=== PATIENT | male | born 1955 | race Hispanic/Latino ===

== ENCOUNTER 2017-09-30 22:28 | Emergency (ER) | payer MEDICARE, BC ==
[2017-09-30] MEDS ORDERED: Acetaminophen/Codeine 30-300mg Tablet ONE (23:03)
[2017-09-30] MEDS ORDERED: Cyclobenzaprine 10 MG TAB ONE (23:03)
--- NOTE | 2017-09-30 23:13 | RAD ---
THREE VIEWS OF THE RIGHT SHOULDER 09/30/17 HISTORY: Pain. FINDINGS: There is moderate degenerative change of the right acromioclavicular joint. There is no widening of t he AC or CC interspace. No displaced fracture or dislocation. IMPRESSION: No acute osseous abnormality. POS: [facility]
== END 2017-09-30 23:53 | disposition home or self-care (01) ==
LOC: ERS 22:28
DX: M19.011 Primary osteoarthritis, right shoulder (principal); M54.12 Radiculopathy, cervical region; I10 Essential (primary) hypertension; E78.5 Hyperlipidemia, unspecified; E11.9 Type 2 diabetes mellitus without complications; Z87.891 Personal history of nicotine dependence

== ENCOUNTER 2018-01-10 09:53 | Inpatient (IN) | payer BC, MEDICARE, OTHER ==
[2018-01-10 10:31] LABS: #Basophils 0.1 thou/uL (0.0-0.2); #Eosinphils 0.3 thou/uL (0.0-0.7); #Lymphocytes 1.6 thou/uL (1.20-3.40); #Monocytes 0.7 thou/uL (0.11-0.59); #Neutrophils 7.8 thou/uL (1.40-6.50); %Basophils 0.6 % (0.0-1.0); %Eosinophils 3.2 % (0.0-10.0); %Lymphocytes 14.8 % (21.0-51.0); %Monocytes 6.6 % (0.0-10.0); %Neutrophils 74.8 % (42.0-75.0); Hemoglobin 15.8 g/dL (14.0-18.0); Mean Corpuscular HGB CONC 33.4 g/dL (32.0-36.0); Mean Corpuscular Hemoglobin 31.7 pg (27.0-31.0); Mean Corpuscular Volume 95.1 fl (80.0-94.0); Mean Platelet Volume 9.7 fL (7.4-10.4); Platelet Count 181 thou/uL (130-400); RBC Distribution Width 12.1 % (11.5-14.5); Red Blood Cell (RBC) Count 4.98 mill/uL (4.70-6.10); White Blood Cell (WBC) Count 10.5 thou/uL (4.8-10.8)
[2018-01-10 10:40] LABS: INR-International Normal Ratio 1.5; PTT 38.7 SEC (22.9-36.1)
[2018-01-10 10:54] LABS: ALT (SGPT) 16 U/L (8-55); AST (SGOT) 18 U/L (5-34); Albumin 3.9 g/dL (3.4-4.8); Alcohol Less than 10 mg/dL (Less than 10); Alkaline Phosphatase 101 U/L (40-150); Anion Gap 16 mmol/L (10-20); BUN (Urea Nitrogen) 44 mg/dL (8.4-25.7); Bilirubin, Total 0.9 mg/dL (0.2-1.2); CK (CPK) 303 U/L (30-200); Calc. Creatinine Clearance 0 mL/min (70-130); Calcium 9.9 mg/dL (7.8-10.44); Carbon Dioxide 25 mmol/L (23-31); Chloride 97 mmol/L (98-107); Estimated GFR-MDRD 36; Globulin 3.4 g/dL (2.4-3.5); Glucose 333 mg/dL (80-115); Potassium 3.8 mmol/L (3.5-5.1); Protein, Total 7.3 g/dL (5.8-8.1); Sodium 134 mmol/L (136-145)
--- NOTE | 2018-01-10 10:54 | RAD ---
PORTABLE AP CHEST RADIOGRAPH: Date: 01-10-18 History: Chest pain, dizziness, fall. Comparison: 09-12-11 FINDINGS: There has been interval placement of a dual-lead right subclavian AICD device with RA and RV leads. C ardiac silhouette and pulmonary vasculature are within normal limits. The lungs are clear. Calcified left hilar and mediastinal lymph nodes are present. IMPRESSION: No acute cardiopulmonary process. POS: [facility]
[2018-01-10 10:57] LABS: Troponin I Less than 0.010 ng/mL (< 0.028)
[2018-01-10 11:00] LABS: CKMB 8.2 ng/mL (0-6.6)
--- NOTE | 2018-01-10 11:41 | CT ---
HEAD CT WITHOUT CONTRAST: 01/10/2018 HISTORY: Unsteady gait with weakness and dizziness. Falls. COMPARISON: 07/18/2011 TECHNIQUE: Serial axial CT imaging is obtained at 5 mm intervals, from the vertex through the skull base, withou t contrast. FINDINGS: The imaged paranasal sinuses/mastoid air cells are well aerated. There is no displaced calvarial fra cture. There is a new hyperdense lesion within the left frontal lobe, measuring 7 mm, in the subcortical reg ion, best seen on image 18. There is mild periventricular hypodensity, suggesting small vessel disea se. No midline shift or mass effect is noted. IMPRESSION: New 7 mm hyperdense intraaxial lesion in the left frontal lobe. This could represent a new focus of intraaxial hemorrhage. A benign calcification or calcified intraaxial mass is a possibility. Short- term follow-up imaging is advised to assess if this represents a hemorrhage, which would resolve over time. If this does not resolve in an appropriate fashion, a brain MRI would then be advised for fur ther assessment. Results discussed with Dr. Garcia at 11:10 a.m. on 01/10/2018. CODE CR POS: [facility]
[2018-01-10 12:07] LABS: Bilirubin Negative (Negative); Blood, Urine Trace (Negative); Glucose, Urine (Dipstick) 500 mg/dL (Negative); Leukocyte Negative (Negative); Nitrite Negative (Negative); Protein, Urine (Dipstick) Negative (Neg-Trace); Specific Gravity, Urine 1.015 (1.005-1.030); Urobilinogen 0.2 mg/dL (0.2-1.0)
[2018-01-10 12:09] LABS: Clarity Clear (Clear)
[2018-01-10 12:14] LABS: Bacteria/HPF None Seen HPF (None Seen); Hyaline Casts/LPF 0-3 HYALINE CAST LPF (0-3 Hyaline); RBC/HPF 0-3 HPF (0-3); Squamous Epithelial 0-3 HPF (0-3); Transitional Epithelial 0-3 HPF (0-3); WBC/HPF 0-3 HPF (0-3)
[2018-01-10 14:17] LABS: Troponin I Less than 0.010 ng/mL (< 0.028)
--- NOTE | 2018-01-10 17:15 | PDOC.EVN ---
Event Note - Event Note Event Note: [id number] H&P DICATTED 1. R/O STROKE 2. HTN 3. H/O DM TYPE 2 4. H/O CVA plan: see orders
[2018-01-10 17:23] VITALS: BMI 25.9
[2018-01-10 17:34] LABS: Troponin I Less than 0.010 ng/mL (< 0.028)
--- NOTE | 2018-01-10 18:18 | HP ---
CHIEF COMPLAINT: Unsteady gait. HISTORY OF PRESENT ILLNESS: The patient is a 62-year-old male with past medical history of diabetes type 2, CVA, hypertension, atrial fibrillation, now came today complaining of unsteady gait. The pat kiarra said he is feeling dizzy and unsteady gait since the last 2 days. The patient said he gets inte rmittent dizziness, so he uses meclizine, but today his unsteady gait is more worse now as if he is g oing to fall. Denies any head injury. Complains of headache and neck pain also constant. Since yes terday, has history of intermittent headaches. Denies any nausea, denies any vomiting, denies any di arrhea, denies any blood in stool, denies any chest pain, denies any palpations. PAST MEDICAL HISTORY: As per HPI. PAST SURGICAL HISTORY: AICD. SOCIAL HISTORY: Denies smoking, denies alcohol use, denies any drugs. FAMILY HISTORY: Positive for heart problems. MEDICATIONS: Reviewed. REVIEW OF SYSTEMS: Constitutional: Denies any fever, denies any chills. Eyes: No vision problems. Ears: Denies any hearing loss. Neck: Denies any neck pain. Cardiovascular System: Denies any c hest pain, denies any palpations. Respiratory System: Denies any cough, denies any sputum productio n. Gastrointestinal: Denies nausea, vomiting. Cranial Nervous System: Denies syncope. Positive for unsteady gait. All other review of systems ar e reviewed and are negative. PHYSICAL EXAMINATION: CONSTITUTIONAL/VITAL SIGNS: At the time of H&P performed, blood pressure is 130/70, afebrile and res piration rate 18. GENERAL: The patient appears comfortable. HEENT: Anterior nares patent. Nose normal. Ears normal. Teeth intact. Tongue is moist. NECK: Supple. No JVD. CARDIOVASCULAR SYSTEM: S1 and S2 present. Regular rate and rhythm. No murmurs, no rubs, no gallops . RESPIRATORY SYSTEM: No wheezing, no rhonchi. Breath sounds present bilaterally. GASTROINTESTINAL: Abdomen is soft and nontender. No guarding, no organomegaly, no masses felt. MUSCULOSKELETAL: No edema. NEUROLOGIC: Cranial nerves intact. Follows commands. Speech clear. PSYCHIATRIC: Mood is appropriate at this time. INTEGUMENT: No rashes seen. LABORATORY DATA: At the time of H&P performed; white count of 10.5, hemoglobin 15.8 and platelet cou nt is 181. PT 18 and INR 1.5. BMP showed a sodium of 134, potassium 3.8, chloride 97, CO2 of 25, BU N 44 and creatinine 1.89. IMAGING DATA: CT head done in the ER showed benign new hyperdense intraaxial lesion seen in the left frontal lobe. This could represent new focal self intraaxial hemorrhage and recommended MRI. ASSESSMENT AND PLAN: The patient is 62 years old male. 1. Rule out stroke. CT questionable showed possible hemorrhage. We did consult Neurology in the ER . We will go ahead and get repeat CT head in the a.m. We will monitor the patient closely. We will do neuro checks q.2 hours per protocol. We will hold up as per this time. 2. Unsteady gait and leg pain. Plan to do CT cervical spine also rule out cervical stenosis. We wi ll monitor the patient closely. We will get PT, OT for a while. 3. Hypertension. Monitor blood pressure. Continue blood pressure medications. 4. History of atrial fibrillation, hold anticoagulation at this time and monitor heart rate. 5. Diabetes mellitus type 2. Start him up to monitor blood sugars. We will do insulin sliding scal e. The case was discussed in detail with the patient.
[2018-01-10] MEDS: Sodium Chloride 0.9% 1,000 ML IV SCH (18:57)
[2018-01-10] MEDS: HYDROcodone/Acetaminophen 5/325 mg Tablet PO PRN (18:57)
--- NOTE | 2018-01-10 20:03 | CON ---
DATE OF CONSULTATION: 01/10/2018 REFERRING PROVIDER: Dr. Kp Woods. REASON FOR CONSULTATION: Gait imbalance and worsening right-sided weakness. HISTORY OF PRESENT ILLNESS: Mr. Roy is a pleasant 62-year-old male who has been consulted for evaluation of difficulty with gait imbalance and worsening right-sided weakness. History is obtained from the patient and his who was present at bedside. reports that patient has a history of stroke in 2006 that resulted in right hemiparesis and aphasia. He has slowly recovered to the full extent. On occasions, he may have some weakness in his right lower extremity, but able to walk independently without any assistance of a cane or walker. He is also able to perform all his activities without any difficulty. She states that over the past few days, she started noticing that he has been dragging his right leg frequently. She also noted that he has been complaining of feeling weak in his right lower extremity. He also has been having increasing difficulty with his speech, where he has hard time finding words. He has had several falls over the past couple of days, which prompted them to bring him to the [facility]. She does note that he has been under a lot of stress over the past few days as his grandson committed suicide whom they have raised as their own son. This has put a lot of stress and depression on him. PAST MEDICAL HISTORY: Significant for hypertension, diabetes, atrial fibrillation, history of stroke and history of heart attack. PAST SURGICAL HISTORY: Significant for pacemaker placement. SOCIAL HISTORY: Denies smoking, alcohol use, or illicit drug use. FAMILY HISTORY: Noncontributory. CURRENT MEDICATIONS: Please review MAR. ALLERGIES: Include LIDOCAINE, PENICILLIN, NAPROXEN and ASPIRIN. REVIEW OF SYSTEMS: As mentioned in the HPI, is negative. PHYSICAL EXAMINATION: VITAL SIGNS: Blood pressure 151/85, pulse of 67, temperature of 98.3, respirations of 16 and O2 sats of 94% on room air. GENERAL: A well-developed, well-nourished male in no apparent distress. RESPIRATORY: Clear to auscultation bilaterally. CARDIOVASCULAR: Regular rate and rhythm. NEUROLOGIC: Mental status: The patient is awake, alert and oriented x3. Speech and language: Fluent speech. Cranial nerves: Pupils are 3 mm and reactive. Visual yuen are intact. External muscles are intact. No nystagmus is noted. Face is symmetric. Tongue and uvula are midline. Motor exam showed normal tone and bulk with a 5/5 strength in both upper and lower extremities. I did not appreciate any pronator drift in both upper extremities. There is a very subtle pronator drift on the right lower extremity. Sensory: Sensation is intact and symmetric. Deep tendon reflexes: 2+ reflexes in both upper and lower extremities. Babinski: Plantar responses flexion bilaterally. Coordination intact to [id number] tapping bilaterally. Rwdq-lw-feee test was normal bilaterally. Gait: I had seen him walk from the bathroom to his bed without any difficulty or any assistance. LABORATORY DATA: Labs are reviewed, which included CBC, CMP, troponin, CPK, CK- MB, urinalysis and plasma alcohol level, which is significant for sodium of 134 , BUN of 44, creatinine of 1.89, glucose of 333, CK-MB of 8.2, CPK of 303, otherwise unremarkable. INR level was 1.5, PT of 18.0 and PTT of 38.7. IMAGING STUDIES: CT head without contrast was reviewed, which showed no acute intracranial abnormality. There was a mention by radiologist about hyperdense lesion measuring 7 mm in the left posterior frontal lobe. In my opinion, this is likely calcification. IMPRESSION: 1. Right lower extremity weakness. 2. Hyperdense lesion in the left posterior frontal lobe. 3. Headache. PLAN: Mr. Roy is a pleasant 62-year-old male who presented with the 2 days history of increasing weakness in the right lower extremity. On my exam , his strength appears pretty symmetric on both sides. I have reviewed his CT head, which does show a small tiny hyperdense lesion in the left posterior frontal lobe, this may be a calcification. Underlying small intraaxial hematoma cannot be completely excluded. I have explained to the that this is unlikely to be the cause for his symptoms. In my opinion, his symptoms are likely contributed by recent increase in stress. He may need a repeat CT head tomorrow morning to revaluate for the lesion noted on the CT scan. If it does not grow or is resolved, then it can be managed medically. I would recommend getting an opinion from neurosurgery for this lesion. Thank you for the consultation. VAN
[2018-01-10] MEDS ORDERED: Atorvastatin Calcium 40 MG TAB PO SCH (21:00)
[2018-01-10] MEDS ORDERED: Dextrose 5% in Water 1,000 ML IV PRN (21:14)
[2018-01-10] MEDS ORDERED: Dextrose 50% Abboject 50 ML SYRINGE IVP PRN (21:14)
[2018-01-10] MEDS: Insulin Regular 300 UNITS/3 ML VIAL SC PRN (21:22)
--- NOTE | 2018-01-10 21:30 | ULT ---
ULTRASOUND WITH DOPPLER DUPLEX CAROTID: 01/10/18 HISTORY: Diagnosis of "carotid stenosis" in 62-year-old male. TECHNIQUE: Gracia scale, color flow, and spectral analysis of major arteries in neck. FINDINGS: There is focal mild plaque, mostly noncalcified, at the origins of the bilateral internal carotid art eries, right greater than left. Highest peak systolic velocities in the internal carotid arteries, ar e 100 cm/s on the right and 65 cm/s on the left. ICA/CCA ratios are 1.4 on the right and 0.8 on the l eft. Vertebral artery flow is antegrade bilaterally. IMPRESSION: 1. Mild atherosclerosis at origins of bilateral internal carotid arteries. 2. No hemodynamically significant stenosis. POS: [facility]
[2018-01-11 06:17] LABS: Cardiac Risk 6.7 (Less than 4.5)
[2018-01-11 06:22] LABS: INR-International Normal Ratio 1.3; Prothrombin Time 16.1 SEC (12.0-14.7)
[2018-01-11] MEDS: Sodium Chloride 0.9% 1,000 ML IV SCH ×2 (06:24→21:53)
[2018-01-11] MEDS: Insulin Regular 300 UNITS/3 ML VIAL SC PRN ×3 (06:44→17:33)
[2018-01-11] MEDS: HYDROcodone/Acetaminophen 5/325 mg Tablet PO PRN ×2 (08:43→16:33)
--- NOTE | 2018-01-11 11:39 | PDOC.PN ---
- Subjective Encounter Start Date: 01/11/18 Encounter Start Time: 13:00 CC: Unsteady gait Sub: pt says he feels better - Objective Vital Signs & Weight: Vital Signs (12 hours) Temp Pulse Resp BP BP Pulse Ox 01/11/18 08:40 98.7 F 65 20 93 L 01/11/18 08:07 98.7 F 65 20 123/59 L 93 L 01/11/18 03:25 98.3 F 62 16 146/73 H 95 Weight Admit Weight 151 lb Weight 151 lb Result Diagrams: 01/10/18 10:29 01/10/18 10:29 Additional Labs: Accuchecks 01/11/18 01/10/18 01/10/18 06:36 21:06 17:12 POC Glucose 334 H 315 H 217 H Phys Exam - Physical Examination Constitutional: NAD HEENT: moist MMs Neck: no JVD Respiratory: no wheezing, no rales, no rhonchi Cardiovascular: RRR, no significant murmur, no rub Gastrointestinal: soft, non-tender Musculoskeletal: no edema Neurological: non-focal, moves all 4 limbs Psychiatric: normal affect, A&O x 3 Dx/Plan - Plan Pt is 62 yrs old male 1. R/O Stroke: Appreciate neuro input. Repeat CT head showed possible small hemorrhage. Hold coumadin for now continue neurochecks 2. HTN: Monitor bp closely continue home meds 3. H/O DM type 2: Monitor blood sugars closely continue insulin sliding scale 4. H/O Hypothyroidism: continue levothyroxine case d/w pt & RN & Pt .
--- NOTE | 2018-01-11 13:51 | CT ---
PRELIMINARY REPORT/[facility]/EMERGENTY AFTER-HOURS PROCEDURE CT Head Without Intravenous Contrast EXAM DATE/TIME: 01/11/2018 5:51 AM CLINICAL HISTORY: 62 years old, male; Signs and symptoms; Dizziness and walking, difficulty; Patient HX: Follow up stroke TECHNIQUE: Axial computed tomography images of the head/brain without intravenous contrast. COMPARISON: CT Brain WO Con 2018-01-10 11:00 FINDINGS: Brain: Small focus of high attenuation in the left centrum semiovale in the frontal region of approxi mately 5-7 mm likely a small amount of blood. No significant change from the previous study. Subtle areas of low attenuation in the periventricular white matter believed to be the manifestation of small vessel ischemic disease. Ventricles: Unremarkable. No ventriculomegaly. Bones/joints: Unremarkable. No acute fracture. Soft tissues: Unremarkable. Sinuses: Unremarkable as visualized. No acute sinusitis. Mastoid air cells: Unremarkable as visualized. No mastoid effusion. IMPRESSION: Small focus of high attenuation in the left centrum semiovale in the frontal region of approximately 5-7 mm likely a small amount of blood. No significant change from the previous study. Thank you for allowing us to participate in the care of your patient. Dictated and Authenticated by: Tony Brannon MD 01/11/2018 6:31 AM Central Time ([place] & [place]) FINAL REPORT HEAD CT WITHOUT CONTRAST: Date: 01/11/18 COMPARISON: 01/10/18. HISTORY: Re-evaluate hyperdensity noted in left centrum semiovale on prior study. FINDINGS: There is a 5-7 mm focus of increased attenuation in the left centrum semiovale frontal region, unchan ged. There is no midline shift or mass effect. There is no ventricular enlargement. The imaged paranasal sinuses/mastoid air cells are well aerated. No displaced calvarial fracture. IMPRESSION: Stable, nonspecific, high attenuation focus within left centrum semiovale may represent a small area of intracranial hemorrhage. Continued follow-up to resolution is advised. Alternative consideration w ould be a focus of calcification. This report is in agreement with the preliminary report given by Ivon. POS: [facility]
--- NOTE | 2018-01-11 14:27 | CT ---
NONCONTRAST CT CERVICAL SPINE: Date: 01/11/18 HISTORY: Neck pain after a fall. Patient states pain is posteriorly. TECHNIQUE: Contiguous axial CT images are obtained through the cervical spine to the T1-2 level. Sagittal and co kg reformatted images are provided. FINDINGS: No fracture or subluxation is seen involving the cervical spine. Multilevel degenerative changes are seen with degenerative changes greatest at C5-6 level where there is narrowing of the intervertebral disc space and posterior osteophyte formation. There is mild to moderate right-sided neural foraminal narrowing present. Prominent facet hypertrophic changes are seen, greatest at the C6-7 and C7-T1 lev els. Prevertebral soft tissue are within normal limits. Lung apices are clear. IMPRESSION: Degenerative changes of the cervical spine, but no fracture or subluxation is identified. POS: [facility]
[2018-01-11] MEDS ORDERED: Acetaminophen 325 MG TAB PO PRN (14:41)
[2018-01-11 15:37] LABS: Anion Gap 10 mmol/L (10-20); BUN (Urea Nitrogen) 33 mg/dL (8.4-25.7); Calc. Creatinine Clearance 49 mL/min (70-130); Calcium 9.9 mg/dL (7.8-10.44); Carbon Dioxide 30 mmol/L (23-31); Chloride 97 mmol/L (98-107); Estimated GFR-MDRD 48; Glucose 347 mg/dL (80-115); Potassium 4.3 mmol/L (3.5-5.1); Sodium 133 mmol/L (136-145)
--- NOTE | 2018-01-11 20:58 | CON ---
DATE OF CONSULTATION: 01/11/2018 ATTENDING PHYSICIAN: Dr. Harshil Deleon. HISTORY OF PRESENT ILLNESS: The patient is a 62-year-old male with a past medical history o f hypertension, diabetes, atrial fibrillation, CVA with no residual deficits, acute NC also with pace maker, who presented to the emergency department yesterday for gradual progression of increasing righ t-sided weakness, difficulty with word finding and intermittent headaches. The patient and family re port that the symptoms have been gradual and progression and began after an increased stress in the p atient's life after his grandson committed suicide. During his admission, he had a CT noncontrast of the head, which showed a small hypodensity in the left frontal lobe, which radiology felt could repr esent a small area of bleeding. However, he had repeat CT head following day and this area appears s table and is unlikely the cause of his current symptoms. He also had a noncontrast CT of the cervica l spine, which is notable for some degenerative changes, particularly at C5-C6. Since his admission, his family and the patient reports that he is improving. He is having increased strength in the rig ht upper and lower extremities. He is ambulating independently again. He denies any headache at thi s time. He is A and O x4. Has no difficulty with word finding during exam. PAST MEDICAL HISTORY: Hypertension, diabetes, atrial fibrillation, CVA, history of acute NC, coronar y artery disease. PAST SURGICAL HISTORY: Pacemaker placement. SOCIAL HISTORY: The patient lives at home. He is , does not smoke, drink or use any drugs. FAMILY HISTORY: Noncontributory. ALLERGIES: The patient is allergic to LIDOCAINE, PENICILLIN, NAPROXEN, and ASPIRIN. REVIEW OF SYSTEMS: Per HPI. PHYSICAL EXAMINATION: CONSTITUTIONAL: The patient appears comfortable sitting in the bed. He is enjoying his dinner. He is in no acute distress. HEAD: Normocephalic, atraumatic. EYES: PERRLA. Extraocular movements are intact. ENT: Mucosa is pink, intact and moist. NECK: Nontender to palpation. Free active range of motion. No meningismus or nuchal rigidity. CARDIOVASCULAR: Regular rate and rhythm. LUNGS: The patient is breathing comfortably. No evidence dyspnea. MUSCULOSKELETAL: Good muscle tone to bilateral upper and lower extremities. No reflex asymmetry. N o focal motor weakness. NEUROLOGIC: He is A and O x4. He has a normal cranial nerve exam. No focal motor weakness is appre ciated on my exam. ASSESSMENT AND PLAN: The patient appears to have gradual right-sided weakness in the upper and lower extremity, intermittent headaches and some difficulty with word finding over the last month. This c oincides with the recent increased stress of the suicide of his grandson. His CT head showed a small hypodensity in the left frontal region and repeat CT is stable, this is unlikely due to the cause of the patient's symptoms. He does have some degenerative changes in the cervical spine, but he is iris ble to get MRI of the brain or neck secondary to his pacemaker placement. At this time, the patient is improving. We will be happy to follow him on an outpatient basis where we will consider CT myelog denia of the cervical spine for further evaluation of this degenerative disease. I have discussed this plan with Dr. Deleon, who will also see the patient. Please reach out to Neurosurgery Service for additional questions or concerns.
[2018-01-11] MEDS ORDERED: Insulin Detemir 100 UNITS/ML 30 UNITS in Pre-Filled Syringe 1 EACH SC SCH (21:00)
[2018-01-11] MEDS ORDERED: Atorvastatin Calcium 10 MG TAB PO SCH (21:00)
[2018-01-11] MEDS ORDERED: Non-Formulary Item 1 EACH (Insulin Glargine,Hum.Rec.Anlog 30 UNIT) SC SCH (21:00)
[2018-01-12] MEDS: Sodium Chloride 0.9% 1,000 ML IV SCH (04:10)
[2018-01-12 05:00] LABS: #Eosinphils 0.4 thou/uL (0.0-0.7); #Lymphocytes 1.9 thou/uL (1.20-3.40); #Monocytes 0.6 thou/uL (0.11-0.59); #Neutrophils 4.6 thou/uL (1.40-6.50); %Basophils 0.5 % (0.0-1.0); %Eosinophils 5.6 % (0.0-10.0); %Lymphocytes 24.9 % (21.0-51.0); %Monocytes 8.2 % (0.0-10.0); %Neutrophils 60.8 % (42.0-75.0); Hemoglobin 14.1 g/dL (14.0-18.0); Mean Corpuscular HGB CONC 34.4 g/dL (32.0-36.0); Mean Platelet Volume 8.9 fL (7.4-10.4); Platelet Count 195 thou/uL (130-400); RBC Distribution Width 11.8 % (11.5-14.5); Red Blood Cell (RBC) Count 4.41 mill/uL (4.70-6.10); White Blood Cell (WBC) Count 7.5 thou/uL (4.8-10.8)
[2018-01-12 05:17] LABS: Anion Gap 11 mmol/L (10-20); BUN (Urea Nitrogen) 24 mg/dL (8.4-25.7); Calc. Creatinine Clearance 60 mL/min (70-130); Calcium 9.3 mg/dL (7.8-10.44); Carbon Dioxide 26 mmol/L (23-31); Chloride 104 mmol/L (98-107); Estimated GFR-MDRD 61; Glucose 338 mg/dL (80-115); Potassium 4.2 mmol/L (3.5-5.1); Sodium 137 mmol/L (136-145)
[2018-01-12] MEDS: Insulin Regular 300 UNITS/3 ML VIAL SC PRN (05:47)
[2018-01-12] MEDS ORDERED: Levothyroxine Sodium 25 MCG TAB PO SCH (06:00)
[2018-01-12] MEDS ORDERED: glipiZIDE 10 MG TAB PO SCH (07:30)
[2018-01-12] MEDS ORDERED: FLUoxetine HCl 20 MG CAP PO SCH (09:00)
[2018-01-12] MEDS ORDERED: Atenolol 50 MG TAB PO SCH (09:00)
[2018-01-12] MEDS ORDERED: Oxybutynin 5 MG TAB PO SCH (09:00)
[2018-01-12] MEDS ORDERED: Fish Oil 1,000 MG CAP PO SCH (09:00)
[2018-01-12] MEDS ORDERED: Amlodipine 10 MG TAB PO SCH (09:00)
--- NOTE | 2018-01-12 11:52 | PDOC.PN ---
- Subjective Encounter Start Date: 01/12/18 Encounter Start Time: 07:15 Subjective: feels better, is amb in room -: moves all extremities - Objective MAR Reviewed: Yes Vital Signs & Weight: Vital Signs (12 hours) Temp Pulse Resp BP Pulse Ox 01/12/18 11:15 97.8 F 64 18 151/78 H 95 01/12/18 09:30 98.3 F 64 18 96 01/12/18 09:29 64 01/12/18 07:12 98.3 F 64 18 149/72 H 96 01/12/18 04:00 97.8 F 60 16 128/61 91 L 01/12/18 00:00 98.0 F 60 16 138/69 92 L Weight Admit Weight 151 lb Weight 151 lb Result Diagrams: 01/12/18 04:41 01/12/18 04:41 Additional Labs: Accuchecks 01/12/18 01/12/18 01/11/18 10:45 05:03 20:30 POC Glucose 269 H 275 H 347 H 01/11/18 01/11/18 17:06 11:33 POC Glucose 332 H 375 H Phys Exam - Physical Examination HEENT: PERRLA, moist MMs Neck: no JVD, supple Respiratory: no wheezing, no rales Cardiovascular: RRR, no significant murmur Gastrointestinal: soft, non-tender, positive bowel sounds Musculoskeletal: no edema, pulses present Neurological: non-focal, moves all 4 limbs Psychiatric: A&O x 3 Dx/Plan (1) RACHEL (acute kidney injury) Code(s): N17.9 - ACUTE KIDNEY FAILURE, UNSPECIFIED Status: Resolved (2) CHF (congestive heart failure) Code(s): I50.9 - HEART FAILURE, UNSPECIFIED Status: Chronic Qualifiers: Heart failure type: systolic Heart failure chronicity: chronic Qualified Code(s): I50.22 - Chronic systolic (congestive) heart failure Comment: ef of 30% (3) DM type 2 (diabetes mellitus, type 2) Status: Chronic Qualifiers: Diabetes mellitus senior care insulin use: with senior care use Diabetes mellitus complication status: with unspecified complications Qualified Code(s) : E11.8 - Type 2 diabetes mellitus with unspecified complications; Z79.4 - terminologist (current) use of insulin; Z79.4 - terminologist (current) use of insulin; Z79.4 - care home (current) use of insulin; Z79.4 - terminologist (current) use of insulin (4) HTN (hypertension) Code(s): I10 - ESSENTIAL (PRIMARY) HYPERTENSION Status: Chronic Qualifiers: Hypertension type: essential hypertension Qualified Code(s): I10 - Essential (primary) hypertension (5) H/O: CVA (cerebrovascular accident) Code(s): Z86.73 - PRSNL HX OF TIA (TIA), AND CEREB INFRC W/O RESID DEFICITS Status: Chronic (6) Dyslipidemia Code(s): E78.5 - HYPERLIPIDEMIA, UNSPECIFIED Status: Chronic - Plan hemo/neuro stable -: ?ICH on CT, nsx to advice regarding future coumadin use for afib -: renal function at baseline -: pt is amb in room -: outpt w/u for Cervical spine issues/myelogram per nsx advice * . Likely dc plan home today if ok with NSX. Review of Systems - Medications/Allergies Allergies/Adverse Reactions: Allergies Allergy/AdvReac Type Severity Reaction Status Date / Time lidocaine Allergy Severe Anaphylaxis Verified 01/10/18 17:32 Penicillins Allergy Severe Anaphylaxis Verified 01/10/18 17:32 naproxen Allergy Unknown Verified 01/10/18 17:33 aspirin Allergy Hives Verified 01/10/18 17:32 Medications: Current Medications Acetaminophen (Tylenol) 650 mg PO Q6H PRN PRN Reason: Pain Last Admin: 01/11/18 22:01 Dose: 650 mg Hydrocodone Bitart/Acetaminophen ([place] 5/325) 1 tab PO Q6H PRN PRN Reason: Pain Last Admin: 01/11/18 16:33 Dose: 1 tab Amlodipine Besylate (Norvasc) 10 mg PO DAILY [facility] Last Admin: 01/12/18 09:29 Dose: 10 mg Atenolol (Tenormin) 100 mg PO DAILY [facility] Last Admin: 01/12/18 09:30 Dose: 100 mg Atorvastatin Calcium (Lipitor) 10 mg PO HS [facility] Last Admin: 01/11/18 21:52 Dose: 10 mg Dextrose/Water (Dextrose 50%) 25 gm IVP PRN PRN PRN Reason: HYPOGLYCEMIA PROTOCOL Fish Oil (Fish Oil) 1,000 mg PO DAILY [facility] Last Admin: 01/12/18 09:31 Dose: 1,000 mg Fluoxetine HCl (Prozac) 40 mg PO DAILY [facility] Last Admin: 01/12/18 09:29 Dose: 40 mg Glipizide (Glucotrol) 10 mg PO DAILY[facility] Last Admin: 01/12/18 09:31 Dose: 10 mg Glucagon (Glucagon) 1 mg IM PRN PRN PRN Reason: HYPOGLYCEMIA PROTOCOL Sodium Chloride (Normal Saline 0.9%) 1,000 mls @ 75 mls/hr IV .[id number] [facility] Last Admin: 01/12/18 04:10 Dose: 1,000 mls Dextrose/Water (D5w) 1,000 mls @ 0 mls/hr IV INF PRN; As Directed PRN Reason: HYPOGLYCEMIA PROTOCOL Insulin Detemir 30 units/ (Miscellaneous Medication) 0.3 mls @ 0 mls/hr SC HS [facility] Last Admin: 01/11/18 21:51 Dose: 0.3 mls Insulin Human Regular (Humulin R) 0 units SC .MODERATE SLIDING SC PRN; Protocol PRN Reason: MODERATE SLIDING SCALE Last Admin: 01/12/18 05:47 Dose: 8 unit Levothyroxine Sodium (Synthroid) 25 mcg PO 0600 [facility] Last Admin: 01/12/18 05:47 Dose: 25 mcg Oxybutynin Chloride (Ditropan) 10 mg PO DAILY [facility] Last Admin: 01/12/18 09:29 Dose: 10 mg Sodium Chloride (Flush - Normal Saline) 10 ml IVF Q12HR [facility] Last Admin: 01/11/18 22:02 Dose: Not Given Sodium Chloride (Flush - Normal Saline) 10 ml IVF PRN PRN PRN Reason: Saline Flush
--- NOTE | 2018-01-12 15:12 | PRG ---
DATE OF SERVICE: 01/12/2018 SUBJECTIVE: Mr. Roy is a 62-year-old man admitted for complaints of upper and lower extremity righ t-sided weakness, intermittent headaches and difficulty with word finding. His clinical course seems to have been quite stable here in the hospital. CT scan was largely unremarkable, but revealed a ti ny left frontal hyperdensity of uncertain etiology. I do not think this represents hemorrhage, but i n any event, it is tiny and was stable on followup CT and no further therapy or imaging is required i n this regard. An MRI cannot be performed due to an implanted device. The patient does have degenerative cervical spinal disease at C5-C6, which certainly could not explai n all of his current symptoms. He has been evaluated by Neurology who could not find any specific st ructural explanation for the patient's symptoms. IMPRESSION AND PLAN: Tiny left frontal hyperdensity of uncertain etiology. Stable clinically and ra diographically. No intervention or further imaging required. No specific neurosurgical recommendati ons at this time.
[2018-01-12 15:52] VITALS: BP 133/66; TEMP 98.4
--- NOTE | 2018-01-12 19:33 | DIS ---
DATE OF ADMISSION: 01/10/2018 DATE OF DISCHARGE: 01/12/2018 DISCHARGE DISPOSITION: To home. PRIMARY DISCHARGE DIAGNOSES: 1. Acute kidney injury, resolved. 2. Small intracranial bleed, stable. 3. History of congestive heart failure with systolic dysfunction and ejection fraction of around 30% . 4. Diabetes mellitus type 2. 5. Hypertension. 6. 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 PROCEDURES DONE DURING HOSPITALIZATION: The patient has had carotid Doppler done, which showed mild atherosclerosis of origins of bilateral internal carotid arteries. No hemodynamically significant st enosis was seen. CT brain done on the day of admission on the showed 7 mm hyperdense intraaxial lesion in the left frontal lobe. This could represent a new focus of intraaxial hemorrhage. The suzanna espinoza had a repeat CT brain on the , which showed small focus of high attenuation in the left luis trum semiovale in the frontal region approximately 5-7 mm, likely a small amount of blood. No signif icant change was seen from the previous study. CT cervical spine showed degenerative changes. No fr acture or subluxation. Echo 2D Doppler showed an ejection fraction of 30%. Hemoglobin and hematocri t 14 and 41, platelet count is 195. INR 1.3. Discharge BUN and creatinine are 24 and 1.2. Admittin g BUN and creatinine were 44 and 1.8. Troponin x3 is negative. Total cholesterol 167, triglycerides 161, LDL 110 and HDL 25. DISCHARGE MEDICATIONS: Norvasc 10 mg p.o. daily, Tenormin 100 mg p.o. daily, fluoxetine 40 mg p.o. d aily, glipizide 10 mg p.o. daily, Lantus 30 units subcu at bedtime, levothyroxine 25 mcg p.o. daily, Prinzide 20/25 mg 1 tab daily, lovastatin 40 mg p.o. at bedtime, oxybutynin 10 mg p.o. daily and Ultr am p.r.n. for pain. ALLERGIES: PENICILLIN, NAPROSYN, ASPIRIN and LIDOCAINE. INPATIENT CONSULTS: Dr. Lao for Neurology and Dr. Deleon for Neurosurgery. DISCHARGE PLAN: The patient to follow up with Dr. Deleon as advised and primary care physician in 1 week. BRIEF COURSE DURING HOSPITALIZATION: The patient initially got admitted on the with complaints of right lower extremity weakness and unsteady gait. He was essentially admitted to stroke unit and has had complete stroke workup done. His initial CT brain done was suspicious for possible small int racranial bleed and a repeat CT was obtained, which showed the size to be same with no enlargement. He remained neurologically stable. The patient in fact is ambulating with no residual weakness as chase at present. He has had a Neurosurgery consultation as well and Neurology consultation with Dr. Virgilio wick. The patient is advised to hold Coumadin for 2 weeks and follow up with primary care physician. He also needs to follow up with regular INR checks as before when he starts his Coumadin after 2 week s. This is per Neurosurgery recommendation. He is otherwise hemodynamically and neurologically stab le and is being cleared for discharge today. Please see a [id number] documentation for the day of discharge on [facility].
--- NOTE | 2018-02-23 14:24 | EKG ---
Test Reason : Blood Pressure : / mmHG Vent. Rate : 063 BPM Atrial Rate : 063 BPM P-R Int : 188 ms QRS Dur : 090 ms QT Int : 412 ms P-R-T Axes : 082 007 061 degrees QTc Int : 421 ms Normal sinus rhythm Normal ECG Confirmed by MALLORY RENAE, PROSPER Delong ([id number]), deputy editor in chief ERIC MATA ([id number]) on 02/23/2018 2:23:42 PM Referred By: Confirmed By:PROSPER TEJADA MD
== END 2018-01-12 16:23 | disposition home or self-care (01) | DRG 65 ==
LOC: ERS 09:53 → 2SE 12:17
PROVIDERS: ADMIT Internal Medicine; ATTEND Internal Medicine
DX: I63.9 Cerebral infarction, unspecified (principal); G81.91 Hemiplegia, unspecified affecting right dominant side; N17.9 Acute kidney failure, unspecified; G93.89 Other specified disorders of brain; I11.0 Hypertensive heart disease with heart failure; I50.22 Chronic systolic (congestive) heart failure; I48.91 Unspecified atrial fibrillation; G95.9 Disease of spinal cord, unspecified; Z95.0 Presence of cardiac pacemaker; I25.2 Old myocardial infarction; E78.5 Hyperlipidemia, unspecified; E11.9 Type 2 diabetes mellitus without complications; Z79.4 Long term (current) use of insulin; F43.9 Reaction to severe stress, unspecified
CPT/HCPCS: 36415; 36416; 70450; 71045; 72125; 80048; 80053; 80061; 80307; 81003; 81015; 82553; 84484; 85025; 85610; 85730; 93005; 93306; 93880; A4216; G8978-GP-CJ; G8979-GP-CI; G8987-GO-CI; G8988-GO-CI; G8989-GO-CI; G8999-GN-CI; G9158-GN-CI; G9186-GN-CI; J1815

== ENCOUNTER 2021-04-06 14:25 | Observation (INO) | payer BC, MEDICARE ==
[~2021-04-06 14:25] MED LIST: Iopamidol-370 76% 500 ML 1 ML ONE
[2021-04-06 14:42] LABS: #Basophils 0.1 thou/uL (0.0-0.2); #Eosinphils 0.3 thou/uL (0.0-0.7); #Lymphocytes 2.6 thou/uL (1.20-3.40); #Monocytes 0.7 thou/uL (0.11-0.59); #Neutrophils 6.5 thou/uL (1.40-6.50); %Basophils 0.7 % (0.0-1.0); %Eosinophils 3.3 % (0.0-10.0); %Lymphocytes 25.6 % (21.0-51.0); %Monocytes 6.4 % (0.0-10.0); Hemoglobin 16.2 g/dL (14.0-18.0); Mean Corpuscular HGB CONC 35.4 g/dL (32.0-36.0); Mean Corpuscular Hemoglobin 33.7 pg (27.0-31.0); Mean Corpuscular Volume 95.2 fL (78.0-98.0); Mean Platelet Volume 9.4 fL (7.4-10.4); Platelet Count 220 thou/uL (130-400); RBC Distribution Width 13.2 % (11.5-14.5); Red Blood Cell (RBC) Count 4.81 mill/uL (4.70-6.10); White Blood Cell (WBC) Count 10.2 thou/uL (4.8-10.8)
[2021-04-06 14:55] LABS: PTT 27.4 sec (22.9-36.1)
[2021-04-06 14:58] LABS: INR-International Normal Ratio 2.7
[2021-04-06 15:06] LABS: ALT (SGPT) 43 U/L (8-55); AST (SGOT) 29 U/L (5-34); Albumin 4.6 g/dL (3.4-4.8); Alkaline Phosphatase 77 U/L (40-110); Anion Gap 20 mmol/L (10-20); BUN (Urea Nitrogen) 44 mg/dL (8.4-25.7); CK (CPK) 262 U/L (30-200); Calc. Creatinine Clearance 0 mL/min (70-130); Calcium 10.6 mg/dL (7.8-10.44); Carbon Dioxide 21 mmol/L (23-31); Chloride 100 mmol/L (98-107); Globulin 3.3 g/dL (2.4-3.5); Glucose 238 mg/dL (80-115); Protein, Total 7.9 g/dL (5.8-8.1); Sodium 136 mmol/L (136-145)
[2021-04-06] MEDS ORDERED: Aspirin Chewable 81 MG TAB ONE (15:29)
[2021-04-06] MEDS ORDERED: Ondansetron PF 4 MG/2 ML Vial ONE (15:29)
[2021-04-06] MEDS ORDERED: Labetalol HCl 100 MG/20 ML VIAL SLOW IVP PRN (16:03)
[2021-04-06] MEDS ORDERED: Dextrose 5% in Water 1,000 ML IV PRN (16:03)
[2021-04-06] MEDS ORDERED: HumaLOG 300 UNITS/3 ML VIAL SC PRN ×2 (16:03)
[2021-04-06] MEDS ORDERED: Dextrose 50% Abboject 50 ML SYRINGE SLOW IVP PRN (16:03)
[2021-04-06] MEDS ORDERED: hydrALAZINE 20 MG/ML VIAL SLOW IVP PRN (16:03)
[2021-04-06] MEDS ORDERED: Ondansetron ODT 4 MG TAB PO PRN (16:03)
[2021-04-06 17:39] LABS: Lactic Acid 1.1 mmol/L (0.5-2.2)
[2021-04-06] MEDS: HumuLIN 70/30 (300 UNITS/3 ML VIAL) SC SCH (19:35)
[2021-04-06] MEDS: Lactated Ringer's 1,000 ML IV SCH (19:40)
[2021-04-06 19:49] LABS: Troponin I Less than 0.010 ng/mL (< 0.028)
[2021-04-06 21:24] LABS: Troponin I Less than 0.010 ng/mL (< 0.028)
[2021-04-06 22:28] VITALS: BMI 26.4
[2021-04-06] MEDS ORDERED: Melatonin 3 MG TAB PO PRN (22:54)
[2021-04-06] MEDS: Acetaminophen 325 MG TAB PO PRN (23:02)
[2021-04-07 04:55] LABS: Hemoglobin A1c 8.4 % (4.0-6.0)
[2021-04-07 05:15] LABS: Anion Gap 14 mmol/L (10-20); BUN (Urea Nitrogen) 45 mg/dL (8.4-25.7); CK (CPK) 158 U/L (30-200); Calc. Creatinine Clearance 41 mL/min (70-130); Carbon Dioxide 20 mmol/L (23-31); Cardiac Risk 5.3 (Less than 4.5); Chloride 106 mmol/L (98-107); Cholesterol 142 mg/dl (< 200 Desired); Glucose 102 mg/dL (80-115); HDL Cholesterol 27 mg/dL (>60 Neg Risk); LDL Cholesterol, Calculated 73 mg/dL; Potassium 3.9 mmol/L (3.5-5.1); Sodium 136 mmol/L (136-145); Triglycerides 212 mg/dL (Less than 150)
[2021-04-07] MEDS: Lactated Ringer's 1,000 ML IV SCH (05:44)
[2021-04-07] MEDS ORDERED: Levothyroxine Sodium 25 MCG TAB PO SCH (06:00)
[2021-04-07] MEDS: HumuLIN 70/30 (300 UNITS/3 ML VIAL) SC SCH (08:50)
[2021-04-07] MEDS: Acetaminophen 325 MG TAB PO PRN (08:54)
[2021-04-07] MEDS ORDERED: Rosuvastatin 20 MG TAB PO SCH (09:00)
[2021-04-07] MEDS ORDERED: Finasteride 5 MG TAB PO SCH (09:00)
[2021-04-07] MEDS ORDERED: FLUoxetine HCl 20 MG CAP PO SCH (09:00)
[2021-04-07 11:01] LABS: SARS-CoV-2 PCR by NAA Not Detected (NotDetected)
[2021-04-07] MEDS ORDERED: Aspirin 81 mg Enteric Coated Tablet PO SCH (11:30)
[2021-04-07] MEDS ORDERED: Lisinopril/Hydrochlorothiazide 20 mg/12.5 mg Tablet PO SCH (11:45)
[2021-04-07] MEDS ORDERED: Atenolol 50 MG TAB PO SCH (11:45)
[2021-04-07 12:24] VITALS: BP 126/72; TEMP 97.3
[2021-04-07] MEDS ORDERED: Warfarin Sodium 2.5 MG TAB PO SCH (17:00)
[2021-04-08] MEDS ORDERED: Lisinopril/Hydrochlorothiazide 20 mg/12.5 mg Tablet PO SCH (09:00)
[2021-04-08] MEDS ORDERED: Atenolol 50 MG TAB PO SCH (09:00)
== END 2021-04-07 14:02 | disposition home or self-care (01) ==
LOC: ERS 14:25 → ERHOLD 15:17 → 2SE 21:08
PROVIDERS: ADMIT Family Medicine; ATTEND Family Medicine
DX: T67.01XA Heatstroke and sunstroke, initial encounter (principal); G45.9 Transient cerebral ischemic attack, unspecified; E86.0 Dehydration; E11.40 Type 2 diabetes mellitus with diabetic neuropathy, unspecified; I13.0 Hypertensive heart and chronic kidney disease with heart failure and stage 1 through stage 4 chronic kidney disease, or unspecified chronic kidney disease; E11.22 Type 2 diabetes mellitus with diabetic chronic kidney disease; N18.30 Chronic kidney disease, stage 3 unspecified; I50.20 Unspecified systolic (congestive) heart failure; N17.9 Acute kidney failure, unspecified; E78.5 Hyperlipidemia, unspecified; E03.9 Hypothyroidism, unspecified; I48.0 Paroxysmal atrial fibrillation; K21.9 Gastro-esophageal reflux disease without esophagitis; I25.2 Old myocardial infarction; M19.90 Unspecified osteoarthritis, unspecified site; I25.10 Atherosclerotic heart disease of native coronary artery without angina pectoris; I69.398 Other sequelae of cerebral infarction; R20.0 Anesthesia of skin; I69.341 Monoplegia of lower limb following cerebral infarction affecting right dominant side; I66.02 Occlusion and stenosis of left middle cerebral artery; I66.21 Occlusion and stenosis of right posterior cerebral artery; Z87.891 Personal history of nicotine dependence; Z79.01 Long term (current) use of anticoagulants; Z79.4 Long term (current) use of insulin; Z79.899 Other long term (current) drug therapy; Z88.0 Allergy status to penicillin; Z95.810 Presence of automatic (implantable) cardiac defibrillator; Z20.822 Contact with and (suspected) exposure to COVID-19; X58.XXXA Exposure to other specified factors, initial encounter
CPT/HCPCS: 70450; 70496; 70498; 71045; 80048; 80053; 80061; 82550 ×2; 82962 ×2; 83036; 83605; 84484 ×2; 85025; 85610; 85730; 86850; 86900; 86901; 93005; 94760; 96374; 97139 ×5; 99285; G0378 ×3; U0003; U0005; 36415; 36416; J1815; J2405; Q9967

== ENCOUNTER 2021-08-30 14:27 | Emergency (ER) | payer MEDICARE ==
[2021-08-30] MEDS ORDERED: Fluorescein Opthalmic Strip ONE (16:46)
[2021-08-30] MEDS ORDERED: Proparacaine 0.5% Opth 15 ML BOT ONE (16:46)
== END 2021-08-30 17:57 | disposition home or self-care (01) ==
LOC: ERS 14:27
DX: S05.02XA Injury of conjunctiva and corneal abrasion without foreign body, left eye, initial encounter (principal); I13.0 Hypertensive heart and chronic kidney disease with heart failure and stage 1 through stage 4 chronic kidney disease, or unspecified chronic kidney disease; E11.22 Type 2 diabetes mellitus with diabetic chronic kidney disease; N18.30 Chronic kidney disease, stage 3 unspecified; I50.9 Heart failure, unspecified; I25.2 Old myocardial infarction; E78.5 Hyperlipidemia, unspecified; E03.9 Hypothyroidism, unspecified; I48.0 Paroxysmal atrial fibrillation; K21.9 Gastro-esophageal reflux disease without esophagitis; E11.40 Type 2 diabetes mellitus with diabetic neuropathy, unspecified; I25.10 Atherosclerotic heart disease of native coronary artery without angina pectoris; W22.8XXA Striking against or struck by other objects, initial encounter
CPT/HCPCS: 99283